=== PATIENT | male | born 2000 | race Caucasian/White ===

== ENCOUNTER 2021-02-18 12:03 | Emergency (ER) | payer OTHER ==
--- OUTSIDE RECORDS SUMMARY | 2021-02-18 12:07 | XMS REPORT | Continuity of Care Document ---
:2000 Author Organization [facility] t Address [address] [place] [address] Care Team Providers Name Role Phone Gerardo De Dios Attending Clinician Satinder Martinez Jr Attending Clinician Gerardo De Dios Admitting Clinician Satinder Martinez Jr Admitting Clinician Problems Condition Condition Condition Status Onset Resolution Last Treating Co mments Source Name Details Category Date Date Treatment Clinician Date LEFT Diagnosis Active 2015-072016-05-31 Mem oria SWOLLEN 1-02 12:32:00 l LEG LEFT 00:00: [place] SWOLLEN 00 LEG Active 05/04/2016 [facility] SECOND Diagnosis Active 2015-072016-05-31 Mem oria DEGREE 0-29 12:33:00 l BLAIR SECOND 00:00: [place] DEGREE 00 BLAIR Active 04/30/2016 [facility] SECOND Diagnosis Active 2015-072016-04-30 Mem oria DEGREE 0-29 18:47:00 l BLAIR TO SECOND 00:00: Dont[place] n FACE, L DEGREE 00 ARM, BILA BLAIR TO FACE, L ARM, BILA Active 04/30/2016 [facility] BURN DUE Diagnosis Active 2016-05-31 M emoria TO 12:33:00 l UNSPECIFIE BURN DUE He rmann D TO WATERCRAFT UNSPECIFIE ON FI D WATERCRAFT ON FI Active [facility] LOCALIZED Diagnosis Active 2016-05-31 Memoria EDEMA 12:32:00 l [place] LOCALIZED EDEMA Active [facility] Gastroesop Problem Resolve 2016-05-11 Memoria hageal d 01:11:51 l reflux [place] disease Gastroesop (disorder) hageal reflux disease (disorder) Resolved Problem 05/11/2016 [facility] Blair of Problem Resolve 2016-05-11 Me moria multiple d 01:11:51 l sites [place] of Donta n (disorder) multiple sites (disorder) Resolved Problem 05/11/2016 [facility] Allergies, Adverse Reactions, Alerts Allergy Allergy Status Severity Reaction(s) Onset Inactive Treating Comm ents Source Name Type Date Date Clinician codeine codeine Active Samantha Caseyann Social History Social Habit Start Date Stop Date Quantity Comments Source Social History 2016-05-01 2016-05-01 [facility] miriam 01:56:42 01:56:42 Medications Ordered Filled Start Stop Current Ordering Indication Dosage Frequency Signature Comments Components Source Medication Medication Date Date Medication? Clinician (SIG) Name Name Sulfamethox 2015-07 Yes 1 tab, PO, Memoria azole 800 1-06 BID, X 7 l MG / 16:05: day, # 14 [place] Trimethopri 00 tab, 0 m 160 MG Refill(s) Oral Tablet [Bactrim] tramadol 2015-07 Yes 100 mg = 2 Mem oria hydrochlori -06 tab, PO, l de 50 MG 15:14: Q6H, X 5 Cindy nn Oral Tablet 00 day, # 40 tab, 0 Refill(s) gabapentin 2015-07 Yes 600 mg = 2 M emoria 300 MG Oral 06 cap, PO, l Capsule 15:14: Q8H, # 84 Cindy nn 00 cap, 0 Refill(s) Glucan Pro 2015-07 Yes 1 appl, Uriel sherry Cream 3.5oz 07-08 TOP, TID, l 15:14: PRN [place] 00 Dressing Change, # 2 ea, 2 Refill(s) Docusate 2015-07 Yes 100 mg = 1 Mem oria Sodium 100 -06 cap, PO, l MG Oral 15:14: BID, # 42 Cindy nn Capsule 00 cap, 0 Refill(s) Bacitracin 2015-07 Yes 1 appl, Uriel sherry 0.5 UNT/MG 06 TOP, l / Polymyxin 15:14: Daily, # He rmann B 10 UNT/MG 00 30 gm, 2 Topical Refill(s) Ointment [Polysporin ] Acetaminoph 2015-07 Yes 1 tab, PO, Memoria en 325 MG / 06 Q6H, 0 l Hydrocodone 15:14: Refill(s) H ermann Bitartrate 00 5 MG Oral Tablet [[place] 5/325] Acetaminoph 2015-07 No Notes: Uriel sherry en 325 MG / 07-07 (Same as: l Hydrocodone 17:00: [place] Cindy nn Bitartrate 00 325/5) Do 5 MG Oral not exceed Tablet 4gm/day of [[place] acetaminop 5/325] hen. Acetaminoph 2015-07 No Notes: Uriel sherry en 325 MG / 07-07 (Same as: l Hydrocodone 15:28: [place] Cindy nn Bitartrate 00 325/5) Do 5 MG Oral not exceed Tablet 4gm/day of [[place] acetaminop 5/325] hen. gabapentin 2015-07 No Notes: Memor ia 300 MG Oral 07-06 (Same as: l Capsule 13:00: Neurontin) Herm byron 00 Acetaminoph 2015-07 No Notes: Do M emoria en 325 MG / 07-06 not exceed l Hydrocodone 12:37: 4gm/day of [place] Bitartrate 00 acetaminop 10 MG Oral hen. Tablet (Same as: [[place] 10/325] 325/10) Acetaminoph 2015-07 No Notes: Do M emoria en 325 MG / 07-06 not exceed l Hydrocodone 12:27: 4gm/day of [place] Bitartrate 00 acetaminop 10 MG Oral hen. Tablet (Same as: [[place] 10/325] 325/10) Zofran 2015-07 No Notes: Memoria 07-05 (Same as: l 16:13: Zofran) [place] MEDICATION WASTE Product Size: 4 mg Product Wasted: ___ mg sennosides, 2015-07 No Notes: Uriel sherry GROUP HOME 07-05 (Same as: l 14:00: Senokot) [place] Docusate 2015-07 No Notes: Memoria 07-04 (Same as: l 22:00: Colace) [place] (Do Not Crush) ketAMINE 2015-07 No 30 mL, Memoria additive 07-04 Rate: 2 l 300 mg [20 20:59: ml/hr, Cindy nn mg/hr] + 00 Infuse Premix over: 15 Diluent hr, Route: Sodium IV, Dosing Chloride Weight 107 0.9% 30 mL kg, Total Volume: 30, Start date: 05/04/16 15:59:00 CDT, Duration: 30 day, Stop date: 06/03/16 15:58:00 [employer] Acetaminoph 2015-07 No 1 tab, Uriel sherry en 325 MG / 07-04 Route: PO, l Hydrocodone 19:07: Drug Form: [place] Bitartrate 00 TAB, 10 MG Oral Dosing Tablet Weight [[place] 107, kg, 10/325] ONCE, STAT, Start date: 05/04/16 14:07:00 CDT, Stop date: 05/04/16 14:07:00 CDT Glucan Pro 2015-07 No Notes: Memor ia Cream 3.5oz 07-04 Same as l 18:04: "Glucan [place] 00 Pro Cream" Non formulary item Bacitracin 2015-07 No Notes: Memor ia 0.5 UNT/MG 07-04 (Same As: l / Polymyxin 18:04: Polysporin [place] B 10 UNT/MG 00 ) Topical Ointment [Polysporin ] Dilaudid 2015-07 No Notes: Memoria 07-04 Same as l 18:04: Dilaudid [place] 00 Lovenox 2015-07 No Notes: Memoria 07-04 (Same as: l 18:03: Lovenox) [place] 00 Tramadol 2015-07 No Notes: Not Mem oria 07-04 to exceed l 18:03: 400mg/day. [place] 00 (Same As: Ultram) gabapentin 2015-07 No Notes: Memor ia 300 MG Oral 07-04 (Same as: l Capsule 18:03: Neurontin) Herm byron 00 Acetaminoph 2015-07 No Notes: Uriel sherry en 325 MG / 07-04 Same as l Hydrocodone 18:02: [place] Cindy nn Bitartrate 00 325-7.5mg 7.5 MG Oral Do not Tablet exceed [[place] 4gm/day of 7.5/325] acetaminop hen. Bisacodyl 2015-07 No Notes: Memori a 07-04 (Same As: l 18:02: Dulcolax, [place] 00 Bisco-Lax) Bacitracin 2015-07 No Notes: Memor ia 0.5 UNT/MG 07-04 (Same As: l / Polymyxin 18:00: Polysporin [place] B 10 UNT/MG 00 ) Topical Ointment [Polysporin ] Aquaphor 2015-07 No 1 appl, Memori a topical 07-04 Route: l ointment 17:47: TOP, ONCE, [place] 00 Drug form: OINT, Start date: 05/04/16 12:47:00 CDT, Stop date: 05/04/16 12:47:00 CDT Morphine 2015-07 No 6 mg, Memoria 07-04 Route: IM, l 16:54: ONCE, [place] 00 Dosing Weight 107, kg, Priority: STAT, Start date: 05/04/16 11:54:00 CDT, Stop date: 05/04/16 11:54:00 CDT Oxycodone 2015-07 Yes 5 mg = 1 Uriel sherry Hydrochlori 0-30 tab, PO, l de 5 MG 15:23: Q6H, PRN Donta n Oral Tablet 00 Pain Score 4-6, # 45 tab, 0 Refill(s) Famotidine 2015-07 No Notes: Memor ia 20 MG Oral 0-30 (Same as: l Tablet 14:00: Pepcid) [place] [Pepcid] 00 Oxycodone 2015-07 No Notes: Memori a Hydrochlori 0-30 (Same as: l de 5 MG 05:29: Roxicodone Herm byron Oral Tablet 00 ) Acetaminoph 2015-07 No Notes: Max Memoria en 0-30 acetaminop l 05:28: hen 4000 [place] 00 mg/day (4 gm/day). (Same as: Tylenol Extra Strength) bacitracin/ 2015-07 No bacitracin Memoria neomycin/po 0-30 /neomycin/ l lymyxin B 03:00: polymyxin [place] opthalmic 00 B ointment opthalmic ointment, 1 appl, Drug form: MISC, Route: BOTH EYES, BID, 04/30/16 22:00:00 CDT, Stop date: 05/30/16 17:00:00 [employer] Melatonin 2015-07 No Notes: Memori a 0-30 (Same as: l 02:45: Melatonin) [place] 00 Bacitracin 2015-07 No 1 appl, Uriel sherry 0.4 UNT/MG 0-30 Route: l / Neomycin 02:00: BOTH EYES, H ermann 0.0035 00 QID, Start MG/MG / date: Polymyxin B 04/30/16 10 UNT/MG 21:00:00 Ophthalmic CDT, Ointment Duration: 30 day, Stop date: 05/30/16 17:00:00 [employer] bacitracin- 2015-07 No 1 appl, Mem oria polymyxin B 0-30 Route: l ophthalmic 02:00: BOTH EYES, H ermann ointment 00 QID, Start date: 04/30/16 21:00:00 CDT, Duration: 30 day, Stop date: 05/30/16 17:00:00 [employer] Bacitracin 2015-07 No 1 appl, Uriel sherry / Polymyxin 0-30 Route: l B 02:00: TOP, Q12H, [place] 00 Apply to LUE and RLE, Start date: 04/30/16 21:00:00 CDT, Duration: 30 day, Stop date: 05/30/16 9:00:00 [employer] D5W 1/2NS + 2015-07 No Notes: Uriel sherry KCL 20mEq/L 0-30 PREMIX IV l 1000ml 01:27: - Do Not [place] (Premix) 00 Alter 1,000 mL WASTE: F/P - Sink; E - Municipal Trash Bin pentafluoro 2015-07 No Notes: Uriel sherry propane-tet 0-30 (Same as: l rafluoroeth 00:40: Pain Ease H ermann ane topical 00 Medium Stream) WASTE: Aerosol - Return to Pharmacy sucrose 2015-07 No 1 mL, Memoria 0-30 Route: PO, l 00:40: Drug Form: [place] 00 LIQ, Dosing Weight 102.7, kg, PRN, PRN Procedure, Start date: 04/30/16 19:40:00 CDT, Duration: 3 doses or times, Stop date: Limited # of times Oxycodone 2015-07 No Notes: Memori a Hydrochlori 0-30 (Same as: l de 5 MG 00:40: Roxicodone Herm byron Oral Tablet 00 ) Morphine 2015-07 No Notes: Memoria 0-30 (Same l 00:40: as:MORPhin [place] 00 e Sulfate) Glucan Pro 2015-07 No Notes: Memor ia Ointment 0-30 Same as l 3.5oz 00:40: "Glucan [place] 00 Pro Cream" Non formulary item Ibuprofen 2015-07 No Notes: Memori a 0-30 (Same as: l 00:40: Advil) [place] 00 Give with food. Miralax 2015-07 No Notes: Memoria 0-30 Dissolve l 00:40: in 8 oz of [place] water or juice. (Same as: Miralax) Fentanyl 2015-07 No 50 Memoria 0-30 microgram, l 00:03: Route: [place] 00 IVP, ONCE, Dosing Weight 102.7, kg, Priority: STAT, Start date: 04/30/16 19:03:00 CDT, Stop date: 04/30/16 19:03:00 CDT Fentanyl 2015-07 No 50 Memoria 0-29 microgram, l 23:35: Route: [place] 00 IVP, ONCE, Dosing Weight 102.7, kg, Priority: STAT, Start date: 04/30/16 18:35:00 CDT, Stop date: 04/30/16 18:35:00 CDT NS 2015-07 No 1,000 mL, Memoria (Pediatric) 0-29 Route: IV, l Bolus 23:33: Drug Form: Donta n 00 INJ, Dosing Weight 102.7, kg, ONCE, Start date: 04/30/16 18:33:00 CDT, Stop date: 04/30/16 18:33:00 CDT Glucan Pro 2015-07 No Notes: Memor ia Cream 3.5oz 0-29 Same as l 23:24: "Glucan Pro Cream" Non formulary item Bacitracin 2015-07 No Notes: Memor ia 0.5 UNT/MG 0 (Same As: l / Polymyxin 23:23: Polysporin [place] B 10 UNT/MG ) Topical Ointment Morphine 2015-07 No 4 mg, Memoria 0-29 Route: l 23:22: IVP, ONCE, [place] 00 Dosing Weight 102.7, kg, Priority: STAT, Start date: 04/30/16 18:22:00 CDT, Stop date: 04/30/16 18:22:00 CDT Immunizations Ordered Immunization Filled Immunization Date Status Commen ts Source Name Name diphtheria/pertussis 2016-05-01 Completed Uriel rial , acel/tetanus adult 01:15:00 Herm byron Vital Signs Vital Name Observation Time Observation Value Comments Source Temperature Oral (F) 2016-05-08 15:18:00 98.8 F [facility] [place] Respitory Rate 2016-05-08 15:18:00 Memori al [place] Heart Rate 2016-05-08 15:18:00 [facility] [place] Systolic (mm Hg) 2016-05-08 15:18:00 Uriel rial [place] Diastolic (mm Hg) 2016-05-08 15:18:00 Mem orial [place] Heart Rate 2016-05-08 13:46:00 [facility] [place] Temperature Oral (F) 2016-05-08 13:46:00 97.6 F [facility] [place] Systolic (mm Hg) 2016-05-08 13:46:00 Uriel rial [place] Diastolic (mm Hg) 2016-05-08 13:46:00 Mem orial [place] Respitory Rate 2016-05-08 13:46:00 Memori al [place] Systolic (mm Hg) 2016-05-08 10:30:00 Uriel rial [place] Diastolic (mm Hg) 2016-05-08 10:30:00 Mem orial [place] Temperature Oral (F) 2016-05-08 10:30:00 96.9 F [facility] [place] Heart Rate 2016-05-08 10:30:00 [facility] [place] Respitory Rate 2016-05-08 10:30:00 Memori al [place] Height 2016-05-05 13:53:00 187.96 cm [facility] [place] Weight 2016-05-04 16:23:00 [facility] [place] Temperature Oral (F) 2016-05-01 12:39:00 98 F [facility] [place] Heart Rate 2016-05-01 12:39:00 [facility] [place] Systolic (mm Hg) 2016-05-01 12:39:00 Uriel rial [place] Diastolic (mm Hg) 2016-05-01 12:39:00 Mem orial [place] Respitory Rate 2016-05-01 12:39:00 Memori al [place] Temperature Oral (F) 2016-05-01 08:49:00 98.9 F [facility] [place] Systolic (mm Hg) 2016-05-01 08:49:00 Uriel rial [place] Diastolic (mm Hg) 2016-05-01 08:49:00 Mem orial [place] Respitory Rate 2016-05-01 08:49:00 Memori al [place] Heart Rate 2016-05-01 08:49:00 [facility] [place] Respitory Rate 2016-05-01 04:22:00 Memori al [place] Heart Rate 2016-05-01 04:22:00 [facility] [place] Systolic (mm Hg) 2016-05-01 04:22:00 Uriel rial [place] Diastolic (mm Hg) 2016-05-01 04:22:00 Mem orial [place] Temperature Oral (F) 2016-05-01 04:22:00 99.3 F [facility] [place] Height 2016-05-01 02:47:00 185 cm [facility] [place] BMI Calculated 2016-05-01 02:47:00 Memori al [place] Weight 2016-05-01 02:47:00 [facility] [place] BMI Calculated 2016-04-30 21:14:00 Memori al [place] Weight 2016-04-30 21:14:00 [facility] [place] Height 2016-04-30 21:14:00 187.96 cm [facility] [place] BMI Calculated 2016-04-30 20:25:00 Memori al [place] Height 2016-04-30 20:25:00 187.96 cm [facility] [place] Weight 2016-04-30 20:25:00 [facility] [place] Procedures Procedure Date / Time Performing Clinician Source Performed Esophagogastroduodenoscopy Memor ial [place] Encounters Start End Encounter Admission Attending Care Care Encounter Source Date/Time Date/Time Type Type Clinicians Facility Department ID 2016-05-04 2016-05-08 Inpatient nullFlavo [facility] [id number] Memoria 16:17:00 20:50:00 r [place] 00 l [facility] 2016-05-04 2016-05-08 Outpatient Lanre [facility] [id number] 11:17:00 14:50:00 Pancho 00 Gerardo 2016-04-30 2016-05-01 Inpatient nullFlavo [facility] [id number] Memoria 20:24:00 18:45:00 r [place] 03 l [facility] 2016-04-30 2016-05-01 Outpatient Juan [facility] [id number] 15:24:00 13:45:00 Ronen Rajan Results Test Description Test Time Test Comments Results Result Comments Source ELECTROLYTES 2016-05-04 11.3 [facility] [place] 18:24:17 ELECTROLYTES 2016-05-04 136 [facility] [place] 18:24:17 ELECTROLYTES 2016-05-04 4.3 [facility] [place] 18:24:17 ELECTROLYTES 2016-05-04 1.17 [facility] [place] 18:24:17 ELECTROLYTES 2016-05-04 13 [facility] [place] 18:24:17 ELECTROLYTES 2016-05-04 100 [facility] [place] 18:24:17 ELECTROLYTES 2016-05-04 9.0 [facility] [place] 18:24:17 ELECTROLYTES 2016-05-04 99 [facility] [place] 18:24:17 ELECTROLYTES 2016-05-04 30 [facility] [place] 18:24:17 HEMATOLOGY 2016-05-04 1.0 [facility] Cindy nn 18:24:17 HEMATOLOGY 2016-05-04 1.7 [facility] [place] 18:24:17 HEMATOLOGY 2016-05-04 0.1 [facility] C[place] nn 18:24:17 HEMATOLOGY 2016-05-04 0.5 [facility] [place] nn 18:24:17 HEMATOLOGY 2016-05-04 5.0 [facility] C[place] nn 18:24:17 HEMATOLOGY 2016-05-04 12.7 [facility] [place] 18:24:17 HEMATOLOGY 2016-05-04 21.6 [facility] [place] 18:24:17 HEMATOLOGY 2016-05-04 1.7 [facility] [place] nn 18:24:17 HEMATOLOGY 2016-05-04 63.5 [facility] [place] nn 18:24:17 HEMATOLOGY 2016-05-04 8.2 [facility] [place] 18:24:17 HEMATOLOGY 2016-05-04 82.9 [facility] [place] nn 18:24:17 HEMATOLOGY 2016-05-04 44.3 [facility] [place] nn 18:24:17 HEMATOLOGY 2016-05-04 208 [facility] [place] nn 18:24:17 HEMATOLOGY 2016-05-04 14.6 [facility] [place] nn 18:24:17 HEMATOLOGY 2016-05-04 33.9 [facility] [place] nn 18:24:17 HEMATOLOGY 2016-05-04 18:24:17 Test Item Value Reference Range Interpretation Comme nts MCH (test code = MCH) 28.1 pg 27.0-31.0 Memorial TngejoqXJZNUZAHXN4116-95-03 18:24:1715.0[facility]annHEMATOLOGY 2016-05-04 18:24:177.9[facility] UirnkrjMQAOLANFSO7198-11-16 18:24:175.34[facility] AovgszmVELWUWNEKVJS5951-78-93 09:08:001.05[facility] OjgcuacXYEZEREUKAMT4856-82-89 09:08:0012[facility] SmqqwejVNJVVEUNEEVR5608-76-52 09:08:0022[facility] [place] KOPKUWGAXVHW5466-02-73 09:08:24569Ijpyomdu JgrrpqwTYSHVVVDTE5986-42-51 09:08:00 0.5[facility] LctytkcJBGACGOMTA6365-94-99 09:08:000.5[facility] HermannHEMATOLOGY 2016-05-01 09:08:0062.5[facility] KzgczjyIVWEAAFECP5168-44-52 09:08:006.0[facility] RraidkiNYZWKRIYOP6131-59-01 09:08:001.0[facility] RnwhnvmKWSEQKHXDI7351-41-60 09:08:002.5[facility] GmjercjPRAAROYXDV8163-59-05 09:08:0010.2[facility] [place] WBBFJGGVLF3115-72-71 09:08:0026.3[facility] OgeqihnFPZUMCZQAW9017-77-37 09:08:00 5.29[facility] VnyywooPNLIBMBGTX5609-11-64 09:08:009.6[facility] HermannHEMATOLOGY 2016-05-01 09:08:0043.6[facility] GosvudrQIHKHCABVY8641-34-81 09:08:0014.8[facility] AcwusynCIVXDDKRIR5437-79-12 09:08:0033.9[facility] TkysfiyLOSFWXUUNL3347-72-68 09:08:00 Test Item Value Reference Range Interpretation Comments MCH (test code = MCH) 28.0 pg 27.0-31.0 Memorial AbyumhvZLSNLCVJWK8336-68-68 09:08:0082.5[facility] HermannHEMATOLOGY 2016-05-01 09:08:0015.1[facility] NdporagSWPILAVPOQ8322-08-46 09:08:89732Rawrpidu GgvrbvsPFCTMMOLQA1367-74-93 09:08:009.0[facility] YmdsisfNJSOHQDKTFFE4233-49-31 09:08:0016.7[facility] OfkcjksQQVAHMIHTVRP3564-77-58 09:08:0073[facility] [place] QQHTDPQQCRGC8884-86-48 09:08:75916Wtqhdnzr HtraoxiLCWGWSOKYIIR6582-64-98 09:08:008.6[facility] GgclpjjWHNVSAYCFPRY5844-47-22 09:08:003.7[facility] [place] DUIXXPAXANID9294-91-17 09:08:60019Rxagpeut [place]
--- NOTE | 2021-02-18 13:33 | RAD REPORT ---
EXAM DESCRIPTION: RAD - Chest Pa And Lat (2 Views) - 02/18/2021 1:27 pm CLINICAL HISTORY: COUGH Chest pain. COMPARISON: <Comparisons> FINDINGS: Mild lower lobe infiltrates are present, greater on the left, likely related to underlying COVID-19 infection. The heart is normal in size. No displaced fractures.
[2021-02-18] MEDS ORDERED: ACETYLCYST 6,000 MG/30 ML VIAL ONE (15:56)
[2021-02-18] MEDS ORDERED: LEVALBUTEROL 1.25 MG/3 ML NEB ONE (15:56)
[2021-02-18] MEDS ORDERED: dexAMETHasone 10 MG/ML VIAL ONE (15:56)
--- NOTE | 2021-02-18 16:13 | RAD REPORT ---
EXAM DESCRIPTION: CT - Chest For Pe Angio - 02/18/2021 3:58 pm CLINICAL HISTORY: Chest pain. shortness of breath, elevated d-dimer COMPARISON: No comparisons TECHNIQUE: CT angiogram of the pulmonary arteries was performed with MIP. All CT scans are performed using dose optimization technique as appropriate and may include automated exposure control or mA/KV adjustment according to patient size. FINDINGS: No evidence of pulmonary thromboembolism. No acute aortic finding demonstrated. Mild to moderate infiltrate is present in both posterior lung bases as well as the posterior lingula. No significant pericardial or pleural fluid. No concerning bony finding. IMPRESSION: No evidence of pulmonary thromboembolism. Bilateral infiltrate pattern is present in both posterior lung bases as well as the posterior lingula . This is most compatible with pulmonary infection/ pneumonia.
[2021-02-18] MEDS ORDERED: ONDANSETRON 4 MG/2 ML VIAL ONE (16:30)
[2021-02-18] MEDS ORDERED: NA CHLORIDE 0.9% 1,000 ML ONE (16:30)
--- NOTE | 2021-02-18 17:30 | EDPHYS ---
Physician Documentation [facility] Name: Calvin Baez Age: 20 yrs Sex: Male : 2000 Arrival Date: 02/18/2021 Time: 12:08 Bed Treatment Private MD: ED Physician Addison Navarro HPI: 02/18 12:43 This 20 yrs old Male presents to ER via Ambulatory with complaints of COVID+, jmm Shortness Of Breath, Decreased Appetite. 12:43 The patient or guardian reports cough. Onset: The symptoms/episode began/occurred jmm gradually, 1 week(s) ago. Associated signs and symptoms: Pertinent positives: vomiting. Modifying factors: The patient symptoms are alleviated by nothing, the patient symptoms are aggravated by nothing. Historical: - Allergies: 12:40 No Known Allergies; kg - Home Meds: 12:40 None [Active]; kg - PMHx: 12:40 None; kg - PSHx: 12:40 None; kg - Immunization history:: Adult Immunizations not up to date, Client reports having NOT received the Covid vaccine. - Social history:: Smoking status: Patient denies any tobacco usage or history of. ROS: 12:43 Constitutional: Positive for body aches, chills. jmm 12:43 Respiratory: Positive for cough, shortness of breath. 12:43 All other systems are negative. Exam: 12:43 Constitutional: This is a well developed, well nourished patient who is awake, alert, jmm and in no acute distress. Head/Face: atraumatic. Eyes: EOMI, no conjunctival erythema appreciated ENT: Moist Mucus Membranes Neck: Trachea midline, Supple Chest/axilla: Normal chest wall appearance and motion. Cardiovascular: Regular rate and rhythm. No edema appreciated Respiratory: Normal respirations, no respiratory distress appreciated Abdomen/GI: Non distended, soft Back: Normal ROM Skin: General appearance color normal MS/ Extremity: Moves all extremities, no obvious deformities appreciated, no edema noted to the lower extremities Neuro: Awake and alert, normal gait Psych: Behavior is normal, Mood is normal, Patient is cooperative and pleasant Vital Signs: 12:36 BP 114 / 81; Pulse 110; Resp 17; Temp 99.0(O); Pulse Ox 100% on R/A; Weight 115.67 kg kg (R); Height 6 ft. 3 in. (190.50 cm) (R); Pain 6/10; 17:29 Pulse Ox 100% on R/A; Pain 0/10; ap3 12:36 Body Mass Index 31.87 (115.67 kg, 190.50 cm) kg MDM: 14:18 Patient medically screened. [facility] 17:28 Data reviewed: vital signs, nurses notes. Counseling: I had a detailed discussion with len the patient and/or guardian regarding: the historical points, exam findings, and any diagnostic results supporting the discharge/admit diagnosis, lab results, radiology results, the need for outpatient follow up, to return to the emergency department if symptoms worsen or persist or if there are any questions or concerns that arise at home. ED course: Patient is alert and nontoxic in appearance in the ER. I discussed all labs and imaging studies with the patient. Patient will follow up with their primary care provider. Patient understood and agrees with plan of care.. 02/18 14:18 Order name: D-Dimer; Complete Time: 15:27 [facility] 02/18 12:43 Order name: XRAY Chest Pa And Lat (2 Views); Complete Time: 14:16 kg 02/18 15:26 Order name: CT Chest For PE Angio; Complete Time: 16:18 [facility] 02/18 14:18 Order name: Saline Lock; Complete Time: 15:46 [facility] Administered Medications: 15:46 Drug: Decadron - Dexamethasone 10 mg Route: IVP; Site: left antecubital; ap3 16:21 Follow up: Response: No adverse reaction ap3 15:46 Drug: Mucomyst - Acetylcysteine 600 mg Route: PO; ap3 16:21 Follow up: Response: No adverse reaction ap3 16:20 Drug: Zofran (Ondansetron) 4 mg Route: IVP; Site: left antecubital; ap3 17:26 Follow up: Response: No adverse reaction ap3 16:21 Drug: Xopenex (levalbuterol) (3) 1.25 mg Route: Inhalation; ap3 16:21 Drug: NS 0.9% 1000 ml Route: IV; Rate: 1 bolus; Site: left antecubital; ap3 17:26 Follow up: IV Status: Completed infusion; IV Intake: 1000ml ap3 Disposition: 18:31 Co-signature as Attending Physician, Addison Navarro MD. rn Disposition Summary: 02/18/21 17:29 Discharge Ordered Location: Home [facility] Condition: Stable [facility] Diagnosis - Coronavirus infection, unspecified [facility] - Vomiting [facility] Followup: [facility] - With: Private Physician - When: 2 - 3 days - Reason: Recheck today's complaints, Continuance of care, Re-evaluation by your physician Discharge Instructions: - Discharge Summary Sheet [facility] - Vomiting, Adult [facility] - COVID-19 [facility] Forms: - Medication Reconciliation Form [facility] - Thank You Letter [facility] - Antibiotic Education [facility] - Prescription Opioid Use [facility] Prescriptions: - ivermectin 3 mg Oral tablet - take 6 tablet by ORAL route as directed 6 tabs now and another 6 tabs on days [facility] 3; 12 tablet; Refills: 0, Product Selection Permitted - ondansetron 4 mg Oral tablet,disintegrating - place 1 tablet by TRANSLINGUAL route every 4-6 hours; 20 tablet; Refills: 0, [facility] Product Selection Permitted - Prednisone 20 mg Oral Tablet - take 3 tablets by ORAL route once daily for 5 days; 15 tablet; Refills: 0, [facility] Product Selection Permitted Signatures: Dispatcher [employer] EDMS Monster Duckworth PA PA [facility] Addison Navarro MD MD rn Prokisch, Amanda, RN RN ap3 Bambi Self RN RN kg
--- NOTE | 2021-02-18 17:30 | ER ---
Nurse's Notes [facility] Name: Calvin Baez Age: 20 yrs Sex: Male : 2000 Arrival Date: 02/18/2021 Time: 12:08 Bed Treatment Private MD: Diagnosis: Coronavirus infection, unspecified;Vomiting Presentation: 02/18 12:36 Chief complaint: Patient states: N/V/D x 3 days, Pt states, " I cant keep anything down kg and feel very dehydrated,". Pt became symptomatic 7 days ago test positive Wednesday 02/14. Coronavirus screen: Client denies travel out of the [place] in the last 14 days. At this time, unable to obtain information related to travel outside the [place] chills, diarrhea, nausea, vomiting. Client presents with at least one sign or symptom that may indicate coronavirus-19. Standard/surgical mask placed on the client. Provider contacted for isolation considerations. Client reports previous positive COVID test result. Date of collection: February 14, 2021. Ebola Screen: Patient negative for fever greater than or equal to 101.5 degrees Fahrenheit, and additional compatible Ebola Virus Disease symptoms Patient denies exposure to infectious person. Patient denies travel to an Ebola-affected area in the 21 days before illness onset. Initial Sepsis Screen: Does the patient meet any 2 criteria? No. Patient's initial sepsis screen is negative. Does the patient have a suspected source of infection? No. Patient's initial sepsis screen is negative. Risk Assessment: Do you want to hurt yourself or someone else? Patient reports no desire to harm self or others. Onset of symptoms was February 15, 2021. 12:36 Method Of Arrival: Ambulatory kg 12:36 Acuity: JAYCEE 4 kg Triage Assessment: 12:40 General: Appears in no apparent distress. Behavior is calm, cooperative, appropriate kg for age, quiet. Pain: Complains of pain in abdomen Pain radiates to Generalized. Respiratory: Reports shortness of breath on exertion cough that is Onset: The symptoms/episode began/occurred gradually, the patient has mild shortness of breath. Historical: - Allergies: 12:40 No Known Allergies; kg - Home Meds: 12:40 None [Active]; kg - PMHx: 12:40 None; kg - PSHx: 12:40 None; kg - Immunization history:: Adult Immunizations not up to date, Client reports having NOT received the Covid vaccine. - Social history:: Smoking status: Patient denies any tobacco usage or history of. Screenin:41 Abuse screen: Denies threats or abuse. Denies injuries from another. Nutritional kg screening: No deficits noted. Tuberculosis screening: No symptoms or risk factors identified. Fall Risk None identified. Assessment: 15:46 General: Appears in no apparent distress. uncomfortable, Behavior is calm, cooperative, ap3 appropriate for age, Reports chills for fever for feeling ill for. Pain: Denies pain. Neuro: Level of Consciousness is awake, alert, obeys commands, Oriented to person, place, time, situation, Appropriate for age Long Lines Operator are equal bilaterally Moves all extremities. Gait is steady, Speech is normal. Cardiovascular: Denies chest pain, Rhythm is regular. Respiratory: Airway is patent Respiratory effort is even, unlabored, Respiratory pattern is regular, symmetrical, Breath sounds are clear in left posterior upper lobe and right posterior upper lobe Breath sounds are diminished in left posterior lower lobe, right posterior middle lobe and right posterior lower lobe. Respiratory: Parent/caregiver reports the patient having shortness of breath pain with cough. GI: Reports nausea, vomiting. : No signs and/or symptoms were reported regarding the genitourinary system. EENT: No signs and/or symptoms were reported regarding the EENT system. Derm: No signs and/or symptoms reported regarding the dermatologic system. Musculoskeletal: Parent/caregiver report the patient having weakness in generalized. 16:21 Reassessment: Patient and/or family updated on plan of care and expected duration. Pain ap3 level reassessed. Patient is alert, oriented x 3, equal unlabored respirations, skin warm/dry/pink. 16:40 General: nurse provided patient with incentive spirometer and education on how to ap3 properly use it. patient verbalized understanding and then proceeded with proper demonstration of use. . Vital Signs: 12:36 BP 114 / 81; Pulse 110; Resp 17; Temp 99.0(O); Pulse Ox 100% on R/A; Weight 115.67 kg kg (R); Height 6 ft. 3 in. (190.50 cm) (R); Pain 6/10; 17:29 Pulse Ox 100% on R/A; Pain 0/10; ap3 12:36 Body Mass Index 31.87 (115.67 kg, 190.50 cm) kg ED Course: 12:08 Patient arrived in ED. mr 12:40 Triage completed. kg 12:40 Arm band placed on right wrist. kg 12:41 Patient has correct armband on for positive identification. kg 13:26 XRAY Chest Pa And Lat (2 Views) In Process Unspecified. EDMS 13:59 Monster Duckworth PA is PHCP. jmm 13:59 Addison Navarro MD is Attending Physician. jmm 15:46 Cassie Leal, HAYES is Primary Nurse. ap3 15:[address] via wheelchair. ap3 15:48 IV is patent, is intact, with good blood return. ap3 15:58 CT Chest For PE Angio In Process Unspecified. EDMS 17:42 No provider procedures requiring assistance completed. IV discontinued, intact, ap3 bleeding controlled, No redness/swelling at site. Pressure dressing applied. Administered Medications: 15:46 Drug: Decadron - Dexamethasone 10 mg Route: IVP; Site: left antecubital; ap3 16:21 Follow up: Response: No adverse reaction ap3 15:46 Drug: Mucomyst - Acetylcysteine 600 mg Route: PO; ap3 16:21 Follow up: Response: No adverse reaction ap3 16:20 Drug: Zofran (Ondansetron) 4 mg Route: IVP; Site: left antecubital; ap3 17:26 Follow up: Response: No adverse reaction ap3 16:21 Drug: Xopenex (levalbuterol) (3) 1.25 mg Route: Inhalation; ap3 16:21 Drug: NS 0.9% 1000 ml Route: IV; Rate: 1 bolus; Site: left antecubital; ap3 17:26 Follow up: IV Status: Completed infusion; IV Intake: 1000ml ap3 Intake: 17:26 IV: 1000ml; Total: 1000ml. ap3 Outcome: 17:29 Discharge ordered by . [facility] 17:43 Discharged to home ambulatory. ap3 17:43 Condition: good 17:43 Discharge instructions given to patient, Instructed on discharge instructions, follow up and referral plans. medication usage, Demonstrated understanding of instructions, follow-up care, medications, Prescriptions given X 3. 17:43 Patient left the ED. ap3 Signatures: Dispatcher [employer] EDMS Monster Duckworth PA PA jmm MckayEileen mr Cassie Leal RN RN ap3 Bambi Self RN RN kg
[2021-02-18 17:50] VITALS: BP 114/81; TEMP 99; O2SAT 100
== END 2021-02-18 17:43 | disposition home or self-care (01) ==
LOC: ER 12:03
DX: U07.1 COVID-19 (principal)
CPT/HCPCS: 96361; 36415; 85379; 71275; 71046; 96375; 96374; 99284; Q9967; J1100; J7030; J2405